=== PATIENT | female | born 1955 | race American Indian/Alaskan Native ===

== ENCOUNTER 2018-04-10 19:57 | Emergency (ER) | payer OTHER ==
[2018-04-10 20:44] VITALS: BP 151/97
[2018-04-10] MEDS ORDERED: NACL 0.9% 1000 ML 1,000 ML IV ONE (20:45)
[2018-04-10 22:00] LABS: Basophils # (Auto) 0.1 K/mm3 (0.0-0.1); Basophils % (Auto) 0.6 % (0.0-1.8); Eosinophils # (Auto) 0.1 K/mm3 (0.0-0.4); Eosinophils % (Auto) 0.8 % (0.0-4.3); Lymphocytes # (Auto) 2.7 K/mm3 (1.2-5.4); Lymphocytes % (Auto) 25.6 % (13.4-35.0); Mean Corpuscular HGB Conc 35 % (30-34); Mean Corpuscular Hemoglobin 33 pg (28-32); Mean Corpuscular Volume 93 fl (79-97); Monocytes # (Auto) 0.9 K/mm3 (0.0-0.8); Monocytes % (Auto) 8.7 % (0.0-7.3); Platelet Count 249 K/mm3 (140-440); Red Cell Distribution Width 13.4 % (13.2-15.2)
[2018-04-10 22:17] LABS: Alanine Aminotransferase 40 units/L (7-56); Albumin 4.1 g/dL (3.9-5); BUN/Creatinine Ratio 15; Blood Urea Nitrogen 9 mg/dL (7-17); Calcium 9.4 mg/dL (8.4-10.2); Hemolysis Index 16
[2018-04-10 22:35] LABS: Bilirubin,Urine NEG (Negative); Blood,Urine NEG (Negative); Calcium Oxalate Crystals,Urine 1+; Color,Urine Yellow (Yellow); Mucus,Urine FEW /HPF; Protein,Urine <15 mg/dL mg/dL (Negative)
[2018-04-11] MEDS ORDERED: TYLENOL PO ONE (00:18)
[2018-04-11] MEDS ORDERED: ZOFRAN ODT PO ONE (00:18)
[2018-04-11] MEDS ORDERED: ALUM-MAG HYDROX-SIMETH 200-200-20MG/5ML PO ONE (00:18)
[2018-04-11] MEDS ORDERED: LIDOCAINE VISCOUS 2% PO ONE (00:18)
--- NOTE | 2018-04-11 01:19 | Emergency Department Report ---
ED N/V/D HPI - General Chief complaint: Abdominal Pain Stated complaint: ABD CRAMPS/EMESIS/DIARRHEA Time Seen by Provider: 04/11/18 00:18 Source: patient Mode of arrival: Ambulatory Limitations: No Limitations - History of Present Illness Initial comments: Pt ate cured pork for the first time earlier today. Had vomiting and diarrhea immediately afterwards. [place] better after vomiting, but her wanted her to get checked out. Endorses mild nausea still. - Related Data Previous Rx's Medication Instructions Recorded Last Taken Type Butalb/Acetamin/Caff 50-325-40 1 each PO Q4H PRN #20 tablet 01/18/15 Unknown Rx [Fioricet] Ondansetron [Zofran Odt] 4 mg PO TID PRN #15 tab.rapdis 04/11/18 Unknown Rx Allergies Allergy/AdvReac Type Severity Reaction Status Date / Time morphine Allergy Anaphylaxis Verified 01/18/15 11:53 ED Review of Systems ROS: Stated complaint: ABD CRAMPS/EMESIS/DIARRHEA Other details as noted in HPI Comment: All other systems reviewed and negative Gastrointestinal: abdominal pain, nausea, vomiting, diarrhea ED Past Medical Hx - Past Medical History Hx Arthritis: Yes Additional medical history: Pneumonia - Surgical History Additional Surgical History: carpal tunnel repair - Social History Smoking Status: Current Every Day Smoker Substance Use Type: None - Medications Home Medications: Home Medications Medication Instructions Recorded Confirmed Last Taken Type Butalb/Acetamin/Caff 50-325-40 1 each PO Q4H PRN #20 tablet 01/18/15 Unknown Rx [Fioricet] Ondansetron [Zofran Odt] 4 mg PO TID PRN #15 tab.rapdis 04/11/18 Unknown Rx ED Physical Exam - General Limitations: No Limitations General appearance: alert, in no apparent distress - Head Head exam: Present: atraumatic, normocephalic - Eye Eye exam: Present: normal appearance - ENT ENT exam: Present: mucous membranes moist - Neck Neck exam: Present: normal inspection - Respiratory Respiratory exam: Present: normal lung sounds bilaterally. Absent: respiratory distress - Cardiovascular Cardiovascular Exam: Present: regular rate, normal rhythm. Absent: systolic murmur, diastolic murmur, rubs, gallop - GI/Abdominal GI/Abdominal exam: Present: soft, normal bowel sounds. Absent: distended, tenderness, guarding, rebound - Extremities Exam Extremities exam: Present: normal inspection - Back Exam Back exam: Present: normal inspection - Neurological Exam Neurological exam: Present: alert, oriented X3 - Psychiatric Psychiatric exam: Present: normal affect, normal mood - Skin Skin exam: Present: warm, dry, intact, normal color. Absent: rash ED Course Vital Signs 04/10/18 20:39 Temperature 98.4 F Pulse Rate 83 Respiratory 14 Rate Blood Pressure 151/97 [Left] O2 Sat by Pulse 98 Oximetry ED Medical Decision Making - Lab Data Result diagrams: 04/10/18 21:44 04/10/18 21:44 - Medical Decision Making 62-year-old female with no significant past medical history that presents to the ER with vomiting and diarrhea. Vitals are stable. Patient is well- appearing. Presentation is likely related to food poisoning from the chair report that she had prior to onset of symptoms. Lab work is unremarkable. I offered the patient IV fluids, but she felt comfortable with oral rehydration. She was given Zofran and a GI cocktail, which improved her symptoms. I went over the clear liquid diet with her. She will be given a prescription for Zofran to go home with. Patient is cleared for discharge. - Differential Diagnosis food poisoning, viral gastroenteritis, small bowel obstruction, sepsis, Critical care attestation.: If time is entered above; I have spent that time in minutes in the direct care of this critically ill patient, excluding procedure time. ED Disposition Clinical Impression: Food poisoning Disposition: DC-01 TO HOME OR SELFCARE Is pt being admited?: No Does the pt Need Aspirin: No Condition: Stable Instructions: Food Poisoning (ED) Additional Instructions: Drink plenty of gatorade/powerade to keep your electrolytes replenish. In 24 hours, try soup/broth/crackers. IF that goes okay, then you can eat heavier meals. 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 Prescriptions: Ondansetron [Zofran Odt] 4 mg PO TID PRN #15 tab.rapdis PRN Reason: Nausea Referrals: PRIMARY CARE, [Primary Care Provider] - 3-5 Days
== END 2018-04-11 02:09 | disposition home or self-care (01) ==
LOC: ED 19:57
DX: T62.91XA Toxic effect of unspecified noxious substance eaten as food, accidental (unintentional), initial encounter (principal); R11.2 Nausea with vomiting, unspecified; R19.7 Diarrhea, unspecified; J45.909 Unspecified asthma, uncomplicated; F17.200 Nicotine dependence, unspecified, uncomplicated; M19.90 Unspecified osteoarthritis, unspecified site; Z88.6 Allergy status to analgesic agent; Y92.89 Other specified places as the place of occurrence of the external cause
CPT/HCPCS: 36415; 80053; 81001; 85025; 99283; Q0162